=== PATIENT | male | born 1955 | race African-American/Black ===

== ENCOUNTER 2016-07-30 12:25 | Observation (INO) | payer OTHER ==
--- NOTE | ~2016-07-30 | OP ---
Record Of Operation [facility] [address] [place]. [address] NAME: JEFFREY HA : 51 STATUS : ADM Fareed PAT#: [id number] AGE: 60 ADM/REG DATE : 07/30/16 MR#: [id number] REPORT SERV DATE: 07/31/16 DICTATED BY: LORENE AMBROSIO DATE: 07/30/16 REPORT STATUS : Draft TRANSCRIBED BY: MODL DATE: 07/30/16 DATE OF PROCEDURE: 07/30/2016 PREOPERATIVE DIAGNOSIS: Strangulated umbilical hernia. POSTOPERATIVE DIAGNOSIS: Strangulated umbilical hernia. PROCEDURE: Open repair of strangulated umbilical hernia repair primarily. ATTENDING PHYSICIAN: Lorene Ambrosio M.D. RESIDENT: Heraclio Pinto M.D. ANESTHESIA: General. ESTIMATED BLOOD LOSS: Less than 10 mL. IV FLUIDS: 800 mL crystalloid. SPECIMEN: None. DRAINS: None. COMPLICATIONS: None. FINDINGS: The patient had a strangulated umbilical hernia. The hernia contents included omentum that was frankly ischemic and necrotic. This was able to be resected back to healthy omentum and we primarily repaired the hernia defect which is approximately 1 to 1.5 cm. INDICATIONS FOR PROCEDURE: This is a 60-year-old male, who had an acute onset of umbilical pain. He had a known umbilical hernia there for quite some time, but it became enlarged bolus, tender to palpation, would not reduce. He has some nausea and vomiting. He states, he became anorexic and had decrease in bowel function. The patient was seen in the office and then referred to Surgery the same day. Risks, benefits, and alternatives were explained to the patient, and the patient expressed clear verbal understanding and wished to proceed forward with this procedure. DESCRIPTION OF PROCEDURE: After informed consent was obtained, the patient was taken back to the operative theater. The patient was laid on the operating room table in supine position. The patient was given adequate analgesia and anesthesia, and then successfully endotracheally intubated. The surgery site was then prepped and draped in the standard fashion. A formal time-out was then performed. Appropriate preoperative antibiotics had been administered. When all present in the operating room were in agreement, we elected to proceed forth with the procedure. We began by making curvilinear infraumbilical incision and then using blunt dissection to dissect around the umbilicus off and the hernia sac. We Record Of Operation [facility] [address] [place]. [address] NAME: JEFFREY HA : 51 STATUS : ADM Fareed PAT#: [id number] AGE: 60 ADM/REG DATE : 07/30/16 MR#: [id number] REPORT SERV DATE: 07/31/16 DICTATED BY: LORENE AMBROSIO DATE: 07/30/16 REPORT STATUS : Draft TRANSCRIBED BY: VICENTE DATE: 07/30/16 then used sharp dissection to separate the umbilicus from the hernia sac. We then used electrocautery to free up the hernia from the fascial edges. The hernia sac was then entered. The contents of the hernia sac were noted to be ischemic and necrotic omentum, this was teased down to that a viable omentum and then clamped across this base. Electrocautery was used to remove the necrotic omentum and hernia sac contents, but with that did not include any bowel and then suture ligated the remaining omentum. This was then dunked back into the abdominal cavity. Hemostasis had been noted and achieved. The fascial defects were skeletonized once we had clear fascial edges. The fascial defects were noted to be about 1 to 1.5 cm in size. We then used 0 Nurolon and MO-6 in a simple interrupted fashion and reapproximated the fascia. The fascia was reapproximated very well. We then used a 3-0 Vicryl in a subdermal fashion, and reapproximated the base of the umbilicus to the base of the wound bed. We then used 3-0 Vicryl, simple interrupted to reapproximate the subcutaneous tissue and then 3-0 Vicryl in a simple interrupted fashion to reapproximate the subcuticular edges. Hemostasis had been noted and achieved. Skin edges were reapproximated very well. Local anesthetic was administered. Sterile dressings were then applied. Sterile drapes were then broken down. The patient was reversed from anesthesia and successfully extubated in the operating room. The patient was awake. Vital signs were stable. The patient was transferred to recovery room in stable condition. DICTATED BY: MD AURELIO Casillas/VICENTE Lorene Ambrosio M.D. / [id number] CC: Lorene Ambrosio M.D.
[~2016-07-30 12:25] MED LIST: MICARDIS HCT PO; NORV10 PO; PROTONIX PO; ULTRAM50 PO; ZYRTEC ALLGY10 MG PO
[2016-07-30 13:18] LABS: HEMATOCRIT 46.6 % (40.0-51.0); HEMOGLOBIN 15.4 g/dL (13.6-17.8)
[2016-07-30 13:30] LABS: BUN (BLOOD UREA NITROGEN) 8 MG/DL (6-23); CALCIUM, SERUM 8.9 MG/DL (8.5-10.4); CHLORIDE, SERUM 110 MMOL/L (96-112); CO2 (CARBON DIOXIDE) 29 MMOL/L (24-34); CREATININE 1.15 MG/DL (0.70-1.30); GFR AFRICAN AMERICAN 79 ML/MIN (>=60); GFR NON AFRICAN AMERICAN 68 ML/MIN (>=60); GLUCOSE, SERUM 100 MG/DL (60-99); SODIUM, SERUM 143 MMOL/L (135-148)
[2016-07-31] MEDS ORDERED: NORCO1 TA2 PO (08:47)
== END 2016-07-31 09:43 | disposition home or self-care (01) ==
LOC: SDC 12:25 → SDC/OF 19:33 → 5SO 21:35
PROVIDERS: Specialist
PROC: 0WQF0ZZ Repair Abdominal Wall, Open Approach (ICD-10-PCS; principal; 2016-07-30 16:15)
DX: K42.9 Umbilical hernia without obstruction or gangrene (principal); I10 Essential (primary) hypertension; E89.0 Postprocedural hypothyroidism; J45.909 Unspecified asthma, uncomplicated; E05.90 Thyrotoxicosis, unspecified without thyrotoxic crisis or storm; K21.9 Gastro-esophageal reflux disease without esophagitis; M19.90 Unspecified osteoarthritis, unspecified site; E04.9 Nontoxic goiter, unspecified; Z79.82 Long term (current) use of aspirin; Z79.899 Other long term (current) drug therapy; Z87.891 Personal history of nicotine dependence; Z86.010 Personal history of colon polyps; Z98.890 Other specified postprocedural states
CPT/HCPCS: 80048; 85014; 85018; 87641; 88302; 93005; 96372; 96374; A9270-GY; G0378; J0360; J0690; J1885; J2250; J2270; J2405; J2710; J3010